=== PATIENT | female | born 1975 | race Caucasian/White ===

== ENCOUNTER 2018-11-06 20:14 | Emergency (ER) | payer BC ==
[2018-11-06] MEDS: Sulfamethoxazole/Trimethoprim 800-160 MG Tab PO ONE (21:02)
--- NOTE | 2018-11-06 21:03 | EDM.PDOC ---
ED HPI GENERAL MEDICAL PROBLEM - General Chief Complaint: Genitourinary Problem Stated Complaint: Pain and burning with urination, back pain Time Seen by Provider: 11/06/18 20:40 Source of Information: Reports: Patient History Limitations: Reports: No Limitations - History of Present Illness INITIAL COMMENTS - FREE TEXT/NARRATIVE: Pt with increased urinary frequency, dysuria and back pain Began today Worse tonight low back Pain Score (Numeric/FACES): 7 pain with urination Pain Score (Numeric/FACES): 10 - Related Data Allergies Allergy/AdvReac Type Severity Reaction Status Date / Time No Known Allergies Allergy Verified 11/06/18 20:34 Home Meds: Home Meds DULoxetine [Cymbalta] 60 mg PO DAILY 11/06/18 [History] Valsartan 160 mg PO DAILY 11/06/18 [History] Past Medical History Cardiovascular History: Reports: Hypertension Psychiatric History: Reports: Depression ED ROS GENERAL - Review of Systems Review Of Systems: See Below GI/Abdominal: Reports: Abdominal Pain : Reports: Dysuria, Flank Pain, Frequency ED EXAM, GI/ABD - Physical Exam Exam: See Below GI/Abdominal Exam: Soft, Tender Course - Vital Signs Last Recorded V/S: Last Vital Signs Temp 36.9 C 11/06/18 20:15 Pulse 91 11/06/18 20:15 Resp 16 11/06/18 20:15 BP 126/95 H 11/06/18 20:15 Pulse Ox - Orders/Labs/Meds Orders: Active Orders 24 hr Category Date Time Status CULTURE URINE [RM] Stat Lab 11/06/18 20:58 Ordered MICRO URINE FOR POC DIPSTICK [POC] Stat Lab 11/06/18 20:56 Ordered Meds: Medications Discontinued Medications Generic Name Dose Route Start Last Admin Trade Name Freq PRN Reason Stop Dose Admin Trimethoprim/Sulfamethoxazole 1 tab 11/06/18 20:59 Septra Ds PO 11/06/18 21:00 ONETIME ONE - Re-Assessments/Exams Free Text/Narrative Re-Assessment/Exam: 11/06/18 21:02 Pt given RX Bactrim DS PO BID Departure - Departure Time of Disposition: 21:15 Disposition: Home, Self-Care 01 Clinical Impression: UTI, Urinary tract infectious disease - Discharge Information *PRESCRIPTION DRUG MONITORING PROGRAM REVIEWED*: Not Applicable *COPY OF PRESCRIPTION DRUG MONITORING REPORT IN PATIENT AZALEA: Not Applicable Instructions: Urinary Tract Infection, Adult Referrals: Elva Salmon NP [Primary Care Provider] - Additional Instructions: Follow up in clinic - My Orders Last 24 Hours: My Active Orders 11/06/18 20:56 MICRO URINE FOR POC DIPSTICK [POC] Stat 11/06/18 20:58 CULTURE URINE [RM] Stat - Assessment/Plan Last 24 Hours: My Active Orders 11/06/18 20:56 MICRO URINE FOR POC DIPSTICK [POC] Stat 11/06/18 20:58 CULTURE URINE [RM] Stat
== END 2018-11-06 21:10 | disposition home or self-care (01) ==
LOC: VM.ED 20:14
DX: N39.0 Urinary tract infection, site not specified (principal); F32.9 Major depressive disorder, single episode, unspecified; I10 Essential (primary) hypertension; Z79.899 Other long term (current) drug therapy
CPT/HCPCS: 81002; 87086; 99283; A9270; 87088; 87186

== ENCOUNTER 2019-08-27 12:37 | Emergency (ER) | payer BC ==
--- NOTE | 2019-08-27 13:08 | EDM.PDOC ---
ED HPI GENERAL MEDICAL PROBLEM - General Chief Complaint: [employer]ING [employer] Problem Stated Complaint: CRAMPING AND HEAVY BLEEDING Time Seen by Provider: 08/27/19 12:45 Source of Information: Reports: Patient History Limitations: Reports: No Limitations - History of Present Illness INITIAL COMMENTS - FREE TEXT/NARRATIVE: Patient presents to ER with complaints of abdominal cramping and vaginal bleeding. Had a menstrual cycle from the 13th to the 17th, a normal menses although admits her cycles have been heavier over the last year. STarted bleeding again during the night. Has changed her tampon 4 times since. Has passed large clots. Does note increased suprapubic cramping. Had a low grade fever yesterday. Had intercourse a week ago, was more uncomfortable than normal. History of tubal ligation. Had 4 live births. Does express concern about blood loss as she has history of anemia. Onset: Today Duration: Hour(s):, Waxing/Waning Location: Reports: Abdomen Quality: Reports: Sharp Severity: Moderate Associated Symptoms: Reports: Fever/Chills, Weakness. Denies: Chest Pain, Cough , Loss of Appetite, Nausea/Vomiting, Shortness of Breath, Syncope Left Lower Abdomen Pain Score (Numeric/FACES): 9 - Related Data Allergies Allergy/AdvReac Type Severity Reaction Status Date / Time No Known Allergies Allergy Verified 08/27/19 12:54 Home Meds: Home Meds DULoxetine [Cymbalta] 60 mg PO DAILY 11/06/18 [History] Valsartan 160 mg PO DAILY 11/06/18 [History] Past Medical History Cardiovascular History: Reports: Hypertension Psychiatric History: Reports: Depression Hematologic History: Reports: Anemia Social & Family History - Tobacco Use Smoking Status *Q: Unknown Ever Smoked ED ROS GENERAL - Review of Systems Review Of Systems: See Below Constitutional: Reports: Fever, Chills, Malaise, Weakness, Fatigue. Denies: Decreased Appetite HEENT: Reports: No Symptoms Respiratory: Denies: Shortness of Breath, Cough Cardiovascular: Denies: Chest Pain, Edema, Lightheadedness Endocrine: Reports: Fatigue GI/Abdominal: Reports: Abdominal Pain. Denies: Nausea, Vomiting : Reports: Irregular Menses Musculoskeletal: Reports: No Symptoms Skin: Reports: No Symptoms Neurological: Reports: No Symptoms ED EXAM, RENAL/ - Physical Exam Exam: See Below Exam Limited By: No Limitations General Appearance: Alert, WD/WN, No Apparent Distress Ears: Normal External Exam, Normal TMs Nose: Normal Inspection, Normal Mucosa, No Blood Throat/Mouth: Normal Inspection, Normal Oropharynx Head: Normocephalic Neck: Normal Inspection, Supple, Non-Tender Respiratory/Chest: No Respiratory Distress, Lungs Clear, Normal Breath Sounds Cardiovascular: Regular Rate, Rhythm GI/Abdominal: Normal Bowel Sounds, Soft, Tender Extremities: Normal Inspection, No Pedal Edema Neurological: Alert, Oriented Skin Exam: Warm, Dry Course - Vital Signs Last Recorded V/S: Last Vital Signs Temp 97.3 F 08/27/19 12:42 Pulse 90 08/27/19 12:42 Resp 16 08/27/19 12:42 BP 144/95 H 08/27/19 12:42 Pulse Ox 100 08/27/19 12:42 - Orders/Labs/Meds Labs: Laboratory Tests 08/27/19 08/27/19 08/27/19 Range/Units 13:04 13:08 13:08 WBC 6.0 (4.0-10.0) x10^3/uL RBC 4.37 (4.00-5.50) x10^6/uL Hgb 12.7 (12.0-16.0) g/dL Hct 39.0 (33.0-47.0) % MCV 89.2 (78.0-93.0) fL MCH 29.1 (26.0-32.0) pg MCHC 32.6 (32.0-36.0) g/dL RDW Coeff of Vidya 18.6 H (10.0-15.0) % Plt Count 184 (130-400) x10^3/uL Neut % (Auto) 74.1 (50.0-80.0) % Lymph % (Auto) 18.1 L (25.0-50.0) % [place] % (Auto) 5.2 (2.0-11.0) % Eos % (Auto) 2.3 (0.0-4.0) % Baso % (Auto) 0.3 (0.2-1.2) % Sodium 143 (136-145) mmol/L Potassium 3.4 L (3.5-5.1) mmol/L Chloride 106 (98-107) mmol/L Carbon Dioxide 28 (21-32) mmol/L Anion Gap 12.4 (10-20) mmol/L BUN 7 (7-18) mg/dL Creatinine 0.7 (0.55-1.02) mg/dL Est Cr Clr Drug Dosing TNP Estimated GFR (MDRD) > 60 Glucose 137 H (74-106) mg/dL Calcium 7.9 L (8.5-10.1) mg/dL Urine HCG, Qual Negative (NEGATIVE) Meds: Medications Discontinued Medications Generic Name Dose Route Start Last Admin Trade Name Freq PRN Reason Stop Dose Admin Hydrocodone Bitart/Acetaminophen 1 tab 08/27/19 13:21 08/27/19 13:44 [place] 325-5 Mg PO 08/27/19 13:22 1 tab ONETIME ONE Administration - Re-Assessments/Exams Free Text/Narrative Re-Assessment/Exam: 08/27/19 13:35 Labs are stable. Contacted [facility] to obtain a pelvic ultrasound, set up for 245 pm today. Patient informed. will take her directly there, radiologist will call with report and further direction will be given at that point. 1530-Received call from radiologist. Has small ovarian cyst, no other uterine concerns. Patient notified by phone. Will start medroxyprogesterone 5 mg daily. Given 10# [place] for pain. Encouraged to follow up with primary care provider. Departure - Departure Time of Disposition: 13:36 Disposition: Home, Self-Care 01 Condition: Undetermined Clinical Impression: Vaginal bleeding - Discharge Information *PRESCRIPTION DRUG MONITORING PROGRAM REVIEWED*: No *COPY OF PRESCRIPTION DRUG MONITORING REPORT IN PATIENT AZALEA: No Instructions: Abnormal Uterine Bleeding Referrals: Farrukh Núñez MD [Primary Care Provider] - Forms: ED Department Discharge Additional Instructions: 1. Push fluids 2. Do not void before ultrasound 3. Present to [facility]ology department at the hospital by 230 pm 4. Radiologist will notify provider here in [place] of results and treatment will be determined at that time. Sepsis Event Note - Evaluation Sepsis Screening Result: No Definite Risk - Focused Exam Vital Signs: Vital Signs Temp Pulse Resp BP Pulse Ox 08/27/19 12:42 97.3 F 90 16 144/95 H 100 Date Exam was Performed: 08/27/19 Time Exam was Performed: 22:08
[2019-08-27] MEDS ORDERED: Acetaminophen/HYDROcodone 325-5 MG Tab PO ONE (13:21)
[2019-08-27 13:27] LABS: CHLORIDE,CL 106 mmol/L (98-107); SODIUM,NA 143 mmol/L (136-145)
[2019-08-27 13:28] LABS: ANION GAP 12.4 mmol/L (10-20)
== END 2019-08-27 13:47 | disposition home or self-care (01) ==
LOC: VM.ED 12:37
DX: N93.9 Abnormal uterine and vaginal bleeding, unspecified (principal); I10 Essential (primary) hypertension; Z79.899 Other long term (current) drug therapy
CPT/HCPCS: 36415; 80048; 81025; 85025; 99284; A9270

== ENCOUNTER 2020-01-11 17:41 | Emergency (ER) | payer BC ==
[2020-01-11] MEDS ORDERED: Ketorolac 60 MG/2 ML SDV IM ONE (18:31)
[2020-01-11] MEDS ORDERED: Sodium Chloride 0.9% 10 ML Syringe FLUSH PRN (18:34)
--- NOTE | 2020-01-11 18:41 | EDM.PDOC ---
ED HPI GENERAL MEDICAL PROBLEM - General Stated Complaint: FELL DOWN STEPS Time Seen by Provider: 01/11/20 18:15 Source of Information: Reports: Patient - History of Present Illness INITIAL COMMENTS - FREE TEXT/NARRATIVE: Marguerite is a 44 y/o female who fell down about 6 steps this AM with a basket of clothes that she was carrying. She has gotten more uncomfortable as the day has done on. She noticed a large hard bruised area on her left buttock that is very painful to sit on. She has not taken any meds, but can hardly lay down due to the pain. Left Lower Hip Pain Score (Numeric/FACES): 9 - Related Data Allergies Allergy/AdvReac Type Severity Reaction Status Date / Time No Known Allergies Allergy Verified 01/11/20 19:54 Home Meds: Home Meds DULoxetine [Cymbalta] 60 mg PO DAILY 11/06/18 [History] Valsartan 160 mg PO DAILY 11/06/18 [History] Ondansetron [Ondansetron ODT] 4 mg PO Q6H PRN #15 tab.rapdis 01/11/20 [Rx] oxyCODONE HCl/Acetaminophen [Oxycodone-Acetaminophen 5-325] 1 - 2 each PO Q4HR 3 Days #30 tablet 01/11/20 [Rx] Past Medical History Cardiovascular History: Reports: Hypertension Psychiatric History: Reports: Depression Hematologic History: Reports: Anemia Review of Systems - Review of Systems Review Of Systems: See Below Constitutional: Reports: No Symptoms Eyes: Reports: No Symptoms Ears: Reports: No Symptoms Nose: Reports: No Symptoms Mouth/Throat: Reports: No Symptoms Respiratory: Reports: No Symptoms Cardiovascular: Reports: No Symptoms GI/Abdominal: Reports: No Symptoms Genitourinary: Reports: No Symptoms Musculoskeletal: Reports: Back Pain, Other (left buttcok pain) Skin: Reports: Bruising (left buttock) Neurological: Reports: No Symptoms Psychiatric: Reports: No Symptoms ED EXAM, GENERAL - Physical Exam Exam: See Below Course - Vital Signs Text/Narrative:: The patient was seen by the [facility]. CTs of Abd/Pelvis to evaluate the XL hematoma on her left buttcok and CT of Thoracic and Lumbar spine to look at her spine since she has had 3 fusions to her lower back region. Labs done. She was given Toradol 30 mg IVP. 2034 CTs results reviewed with patient. Toradol helped with her pain, ice on left buttock region helps alot. Questions answered. She was given discharge instructions and left the ER in stable condition. Last Recorded V/S: Last Vital Signs Temp 36.1 C 01/11/20 17:48 Pulse 117 H 01/11/20 17:48 Resp 18 01/11/20 17:48 BP 148/91 H 01/11/20 17:48 Pulse Ox 98 01/11/20 17:48 - Orders/Labs/Meds Orders: Active Orders 24 hr Category Date Time Status Abdomen Pelvis w Cont [CT] Stat Exams 01/11/20 18:33 Ordered Lumbar Spine wo Cont [CT] Routine Exams 01/11/20 18:56 Ordered Thoracic Spine wo Cont [CT] Routine Exams 01/11/20 18:53 Taken Sodium Chloride 0.9% [Saline Flush] Med 01/11/20 18:34 Active 10 ml FLUSH ASDIRECTED PRN Saline Lock Insert [OM.PC] Stat Oth 01/11/20 18:35 Ordered Medication Orders Sodium Chloride (Saline Flush) 10 ml FLUSH ASDIRECTED PRN PRN Reason: Keep Vein Open Last Admin: 01/11/20 18:58 Dose: 10 ml Documented by: PHILIPPE Labs: Laboratory Tests 01/11/20 01/11/20 Range/Units 19:06 19:06 WBC 9.2 (4.0-10.0) x10^3/uL RBC 3.73 L (4.00-5.50) x10^6/uL Hgb 12.5 (12.0-16.0) g/dL Hct 36.1 (33.0-47.0) % MCV 96.8 H D (78.0-93.0) fL MCH 33.5 H (26.0-32.0) pg MCHC 34.6 (32.0-36.0) g/dL RDW Coeff of Vidya 12.4 (10.0-15.0) % Plt Count 190 (130-400) x10^3/uL Neut % (Auto) 82.5 H (50.0-80.0) % Lymph % (Auto) 10.6 L (25.0-50.0) % [place] % (Auto) 6.3 (2.0-11.0) % Eos % (Auto) 0.5 (0.0-4.0) % Baso % (Auto) 0.1 L (0.2-1.2) % Sodium 133 L D (136-145) mmol/L Potassium 4.2 (3.5-5.1) mmol/L Chloride 99 (98-107) mmol/L Carbon Dioxide 26 (21-32) mmol/L Anion Gap 12.2 (10-20) mmol/L BUN 13 (7-18) mg/dL Creatinine 0.7 (0.55-1.02) mg/dL Est Cr Clr Drug Dosing 111.31 mL/min Estimated GFR (MDRD) > 60 Glucose 114 H (74-106) mg/dL Calcium 7.7 L (8.5-10.1) mg/dL Meds: Medications Generic Name Dose Route Start Last Admin Trade Name Freq PRN Reason Stop Dose Admin Sodium Chloride 10 ml 01/11/20 18:34 01/11/20 18:58 Saline Flush FLUSH 10 ml ASDIRECTED PRN Administration Keep Vein Open Discontinued Medications Generic Name Dose Route Start Last Admin Trade Name Freq PRN Reason Stop Dose Admin Iopamidol 100 ml 01/11/20 19:41 01/11/20 19:41 Isovue-300 (61%) IVPUSH 01/11/20 19:42 100 ml ONETIME ONE Administration Ketorolac Tromethamine 60 mg 01/11/20 18:31 01/11/20 18:51 Toradol IM 01/11/20 18:32 30 mg ONETIME ONE Administration Ketorolac Tromethamine 30 mg 01/11/20 19:47 Toradol IVPUSH 01/11/20 19:48 ONETIME ONE Oxycodone/Acetaminophen 1 packet 01/11/20 19:50 Take Home: Acetamin/Oxycodon 325-5 Mg, 5 Pack PO 01/11/20 19:51 ONETIME ONE - Radiology Interpretation Free Text/Narrative:: CT Abd/Pelvis W=15.8cm x 7.5cm hematoma in the left buttock region, no other findings (See final report) CT Thoracic Spine=neg (See final report) CT Lumbar Spine=neg (See final report) Departure - Departure Time of Disposition: 20:37 Disposition: Home, Self-Care 01 Clinical Impression: Fall (on) (from) other stairs and steps, initial encounter, Contusion of hip Hematoma of left hip Qualifiers: Encounter type: initial encounter Qualified Code(s): S70.02XA - Contusion of left hip, initial encounter - Discharge Information *PRESCRIPTION DRUG MONITORING PROGRAM REVIEWED*: No *COPY OF PRESCRIPTION DRUG MONITORING REPORT IN PATIENT AZALEA: No Prescriptions: Ondansetron [Ondansetron ODT] 4 mg PO Q6H PRN #15 tab.rapdis PRN Reason: Nausea oxyCODONE HCl/Acetaminophen [Oxycodone-Acetaminophen 5-325] 1 - 2 each PO Q4HR 3 Days #30 tablet Instructions: Contusion, [id number], Pain Medicine Instructions, [id number], How to Use Cold Therapy, Contusion Referrals: Elva Salmon NP [Primary Care Provider] - Additional Instructions: -Oxycodone/APAP 5/325mg 1-2 tablets oral every 4 hours as needed for severe pain #5(ER) #30(Rx) -Ondansetron ODT 4mg oral every 4 hours as needed for nausea #15(Rx) -You may also use ibuprofen 200mg 3 tablets oral every 6 hours (Use over the counter meds) -Apply ice/cool compresses to the left buttock region. -Activity as tolerates. -Follow up with your PCP for recheck in 7-10 days, sooner if any other issues. Please see your PCP for further pain med refills. -Return to the ER for any other concerns Sepsis Event Note (ED) - Focused Exam Vital Signs: Vital Signs Temp Pulse Resp BP Pulse Ox 01/11/20 17:48 36.1 C 117 H 18 148/91 H 98 - My Orders Last 24 Hours: My Active Orders 01/11/20 18:33 Abdomen Pelvis w Cont [CT] Stat 01/11/20 18:34 Sodium Chloride 0.9% [Saline Flush] 10 ml FLUSH ASDIRECTED PRN 01/11/20 18:35 Saline Lock Insert [OM.PC] Stat 01/11/20 18:53 Thoracic Spine wo Cont [CT] Routine 01/11/20 18:56 Lumbar Spine wo Cont [CT] Routine - Assessment/Plan Last 24 Hours: My Active Orders 01/11/20 18:33 Abdomen Pelvis w Cont [CT] Stat 01/11/20 18:34 Sodium Chloride 0.9% [Saline Flush] 10 ml FLUSH ASDIRECTED PRN 01/11/20 18:35 Saline Lock Insert [OM.PC] Stat 01/11/20 18:53 Thoracic Spine wo Cont [CT] Routine 01/11/20 18:56 Lumbar Spine wo Cont [CT] Routine
[2020-01-11 19:27] LABS: ANION GAP 12.2 mmol/L (10-20); CHLORIDE,CL 99 mmol/L (98-107); SODIUM,NA 133 mmol/L (136-145)
[2020-01-11] MEDS ORDERED: Iopamidol 612 MG/ML 100 ML Bottle IVPUSH ONE (19:41)
[2020-01-11] MEDS ORDERED: Ketorolac 30 MG/ML SDV IVPUSH ONE (19:47)
[2020-01-11] MEDS ORDERED: Take Home: Acetaminophen/oxyCODONE 325-5 MG, 5 Tab Pack PO ONE (19:50)
--- NOTE | 2020-01-12 09:46 | CT ---
[id number] CT/CT Abdomen Pelvis W IV EXAM: CT Abdomen Pelvis W IV CLINICAL DATA: LARGE HEMATOMA ON LEFT BUTTOCK, FALL DOWN STEPS COMPARISON STUDY: None. FINDINGS: Lung bases are clear. Postsurgical changes following gastric bypass. The gallbladder surgically absent. Mild intra and extrahepatic biliary ductal dilatation likely secondary to prior cholecystectomy. The spleen, pancreas, Liver, spleen, pancreas, adrenal glands, and kidneys are unremarkable. No bowel obstruction or inflammation. No lymphadenopathy, free fluid, or pneumoperitoneum. Scattered changes of spondylosis the spine. No fracture or osseous lesion. Postsurgical changes following posterior spinal fusion of the lobe and lower lumbar spine. There is a large 15.8 x 7.5 cm hematoma within the superficial soft tissues of the left buttock. No definite evidence of active extravasation though the timing of the study is not arterial. IMPRESSION: 15.8 x 7.5 cm hematoma within the superficial soft tissues of the left buttock. Dmitriy Valencia DO 01/12/20 0943 Thank you for allowing us to participate in the care of your patient.
--- NOTE | 2020-01-12 09:46 | CT ---
[id number] CT/CT Lumbar Spine WO IV Exam: CT Lumbar Spine WO IV Clinical Data: TRAUMA COMPARISON: NO PREVIOUS SIMILAR EXAM IS AVAILABLE FINDINGS: There is no fracture or subluxation. There are surgical changes There are degenerative changes IMPRESSION: NO FRACTURE OR SUBLUXATION Daquan Plata MD 01/12/20 0950 Thank you for allowing us to participate in the care of your patient.
--- NOTE | 2020-01-12 09:47 | CT ---
[id number] CT/CT Thoracic Spine WO IV Exam: CT Thoracic Spine WO IV Clinical Data: TRAUMA COMPARISON: NO PREVIOUS SIMILAR EXAM IS AVAILABLE FINDINGS: There are degenerative changes There is no fracture or subluxation IMPRESSION: NO FRACTURE OR SUBLUXATION Daquan Plata MD 01/12/20 0943 Thank you for allowing us to participate in the care of your patient.
== END 2020-01-11 20:53 | disposition home or self-care (01) ==
LOC: VM.ED 17:41
DX: S70.02XA Contusion of left hip, initial encounter (principal); S30.0XXA Contusion of lower back and pelvis, initial encounter; I10 Essential (primary) hypertension; F32.9 Major depressive disorder, single episode, unspecified; Z79.899 Other long term (current) drug therapy; W10.8XXA Fall (on) (from) other stairs and steps, initial encounter
CPT/HCPCS: 36415; 72128; 72131; 74177; 80048; 85025; 96374; 99284; A9270; J1885; Q9967

== ENCOUNTER 2020-07-23 15:53 | Emergency (ER) | payer BC ==
[2020-07-23] MEDS ORDERED: Sodium Chloride 0.9% 10 ML Syringe FLUSH PRN (16:11)
[2020-07-23] MEDS ORDERED: Ketorolac 15 MG/ML SDV IVPUSH ONE (16:15)
[2020-07-23] MEDS ORDERED: methylPREDNISolone Sodium Succinate 125 MG/2 ML SDV IV ONE (16:15)
[2020-07-23] MEDS ORDERED: Aspirin 81 MG Tab.Chew PO ONE (16:21)
--- NOTE | 2020-07-23 16:44 | CR ---
[id number] RAD/RAD Chest PA or AP 1V EXAM: RAD Chest PA or AP 1V INDICATION: CHEST PAIN. COMPARISON: None. DISCUSSION: Cardiomediastinal silhouette is normal in size and contour. No infiltrate, effusion, pneumothorax, or edema. IMPRESSION: No acute cardiopulmonary abnormality. Dmitriy Valencia DO 07/23/20 1643 Thank you for allowing us to participate in the care of your patient.
[2020-07-23 16:45] LABS: ANION GAP 11.4 mmol/L (5-15); CHLORIDE,CL 100 mmol/L (98-107); SODIUM,NA 138 mmol/L (136-145)
--- NOTE | 2020-07-23 17:01 | EDM.PDOC ---
ED HPI GENERAL MEDICAL PROBLEM - General Chief Complaint: Chest Pain Time Seen by Provider: 07/23/20 16:00 Source of Information: Reports: Patient History Limitations: Reports: No Limitations - History of Present Illness INITIAL COMMENTS - FREE TEXT/NARRATIVE: Pt. presents to ER with complaints of substernal chest pain with radiation into L shoulder. Pt. states that the symptoms have been present for several days. Denies any trauma. No cough or chest congestion. No fever or chills. Pt. states that the discomfort intensified gradually. It is constant and does not come and go. It is not respirophasic or made with with movement. She states that she is not experiencing any palpitations. She denies any lightheadedness. She states that she has been diaphoretic, but states that this is normal for her. Onset Date: 07/21/20 Location: Reports: Chest, Generalized Mid-Sternal Chest Pain Score (Numeric/FACES): 7 - Related Data Allergies Allergy/AdvReac Type Severity Reaction Status Date / Time No Known Allergies Allergy Verified 01/11/20 19:54 Home Meds: Home Meds DULoxetine [Cymbalta] 60 mg PO DAILY 11/06/18 [History] Cholecalciferol (Vitamin D3) [Vitamin D3] 2,000 unit PO DAILY 07/23/20 [History] Pramipexole Di-HCl [Mirapex] 0.125 mg PO BEDTIME 07/23/20 [History] Valsartan/Hydrochlorothiazide [Diovan Hct 320-25 mg Tablet] 1 each PO DAILY 07/23/20 [History] buPROPion HCL [Wellbutrin Xl] 150 mg PO DAILY 07/23/20 [History] buPROPion HCL [Wellbutrin Xl] 300 mg PO DAILY 07/23/20 [History] busPIRone [Buspar] 15 mg PO BID 07/23/20 [History] carvediloL [Coreg] 3.125 mg PO BID 07/23/20 [History] hydrOXYzine HCL [Atarax] 25 mg PO Q4H PRN 07/23/20 [History] Past Medical History Cardiovascular History: Reports: Hypertension Musculoskeletal History: Reports: Back Pain, Chronic Psychiatric History: Reports: Depression Hematologic History: Reports: Anemia - Past Surgical History Musculoskeletal Surgical History: Reports: Other (See Below) Other Musculoskeletal Surgeries/Procedures:: back surgery Social & Family History - Family History Family Medical History: No Pertinent Family History - Tobacco Use Tobacco Use Status *Q: Current Every Day Tobacco User Years of Tobacco use: 30 Packs/Tins Daily: 0.3 - Caffeine Use Caffeine Use: Reports: None ED ROS GENERAL - Review of Systems Review Of Systems: See Below Constitutional: Reports: No Symptoms HEENT: Reports: No Symptoms Respiratory: Reports: No Symptoms. Denies: Shortness of Breath, Wheezing, Pleuritic Chest Pain, Cough, Sputum, Hemoptysis Cardiovascular: Reports: Chest Pain, Edema (States that she has been more "puffy" lately. Having trouble getting her rings off.). Denies: Dyspnea on Exertion Endocrine: Reports: No Symptoms GI/Abdominal: Reports: No Symptoms : Reports: No Symptoms Musculoskeletal: Reports: No Symptoms Skin: Reports: No Symptoms Neurological: Reports: No Symptoms Psychiatric: Reports: No Symptoms Hematologic/Lymphatic: Reports: No Symptoms Immunologic: Reports: No Symptoms ED EXAM, GENERAL - Physical Exam Exam: See Below Exam Limited By: No Limitations General Appearance: Alert, WD/WN, No Apparent Distress Head: Atraumatic, Normocephalic Neck: Normal Inspection, Supple, Non-Tender, Full Range of Motion Respiratory/Chest: No Respiratory Distress, No Accessory Muscle Use, Chest Non-Tender, Pleural Rub Cardiovascular: Normal Peripheral Pulses, Regular Rate, Rhythm, No JVD, No Murmur, No Rub GI/Abdominal: Soft, Non-Tender, No Distention, No Mass (Female) Exam: Deferred Rectal (Female) Exam: Deferred Extremities: Normal Inspection, Normal Range of Motion, Non-Tender, No Pedal Edema, Normal Capillary Refill Neurological: Alert, Oriented, CN II-XII Intact, No Motor/Sensory Deficits Psychiatric: Normal Affect, Normal Mood Skin Exam: Warm, Dry, Intact, Normal Color Course - Vital Signs Last Recorded V/S: Last Vital Signs Temp 36.8 C 07/23/20 15:55 Pulse 81 07/23/20 15:55 Resp 16 07/23/20 15:55 BP 184/117 H 07/23/20 15:55 Pulse Ox 97 07/23/20 15:55 - Orders/Labs/Meds Orders: Active Orders 24 hr Category Date Time Status EKG Documentation Completion [RC] STAT Care 07/23/20 16:12 Active Sodium Chloride 0.9% [Saline Flush] Med 07/23/20 16:11 Active 10 ml FLUSH ASDIRECTED PRN Peripheral IV Insertion Adult [OM.PC] Routine Oth 07/23/20 16:12 Ordered Medication Orders Sodium Chloride (Saline Flush) 10 ml FLUSH ASDIRECTED PRN PRN Reason: Keep Vein Open Last Admin: 07/23/20 16:30 Dose: 10 ml Documented by: [facility] Labs: Laboratory Tests 07/23/20 07/23/20 07/23/20 Range/Units 16:10 16:10 16:10 WBC 4.3 (4.0-10.0) x10^3/uL RBC 4.07 (4.00-5.50) x10^6/uL Hgb 13.2 (12.0-16.0) g/dL Hct 39.1 (33.0-47.0) % MCV 96.1 H (78.0-93.0) fL MCH 32.4 H (26.0-32.0) pg MCHC 33.8 (32.0-36.0) g/dL RDW Coeff of Vidya 12.9 (10.0-15.0) % Plt Count 151 (130-400) x10^3/uL Neut % (Auto) 54.1 (50.0-80.0) % Lymph % (Auto) 31.5 (25.0-50.0) % [place] % (Auto) 9.5 (2.0-11.0) % Eos % (Auto) 4.4 H (0.0-4.0) % Baso % (Auto) 0.5 (0.2-1.2) % PT 10.5 (9.9-12.5) SEC INR 0.9 L (2.0-3.5) D-Dimer, Quantitative (<=0.58) mg/LFEU Sodium 138 (136-145) mmol/L Potassium 3.4 L (3.5-5.1) mmol/L Chloride 100 (98-107) mmol/L Carbon Dioxide 30 (21-32) mmol/L Anion Gap 11.4 (5-15) mmol/L BUN 9 (7-18) mg/dL Creatinine 0.8 (0.55-1.02) mg/dL Est Cr Clr Drug Dosing TNP Estimated GFR (MDRD) > 60 Glucose 97 (74-106) mg/dL Calcium 8.1 L (8.5-10.1) mg/dL Corrected Calcium 8.50 (8.5-10.1) mg/dL Total Bilirubin 0.5 (0.2-1.0) mg/dL AST 90 H (15-37) U/L ALT 119 H (14-59) U/L Alkaline Phosphatase 168 H (46-116) U/L Troponin I < 0.017 (<=0.056) ng/mL C-Reactive Protein < 0.2 (<=0.9) mg/dL NT-Pro-B Natriuret Pep 198 H (<=125) pg/mL Total Protein 6.9 (6.4-8.2) g/dL Albumin 3.5 (3.4-5.0) g/dL Globulin 3.4 Albumin/Globulin Ratio 1.03 TSH, Ultra Sensitive 2.149 (0.358-3.74) uIU/mL 07/23/20 Range/Units 16:10 WBC (4.0-10.0) x10^3/uL RBC (4.00-5.50) x10^6/uL Hgb (12.0-16.0) g/dL Hct (33.0-47.0) % MCV (78.0-93.0) fL MCH (26.0-32.0) pg MCHC (32.0-36.0) g/dL RDW Coeff of Vidya (10.0-15.0) % Plt Count (130-400) x10^3/uL Neut % (Auto) (50.0-80.0) % Lymph % (Auto) (25.0-50.0) % [place] % (Auto) (2.0-11.0) % Eos % (Auto) (0.0-4.0) % Baso % (Auto) (0.2-1.2) % PT (9.9-12.5) SEC INR (2.0-3.5) D-Dimer, Quantitative 0.31 (<=0.58) mg/LFEU Sodium (136-145) mmol/L Potassium (3.5-5.1) mmol/L Chloride (98-107) mmol/L Carbon Dioxide (21-32) mmol/L Anion Gap (5-15) mmol/L BUN (7-18) mg/dL Creatinine (0.55-1.02) mg/dL Est Cr Clr Drug Dosing Estimated GFR (MDRD) Glucose (74-106) mg/dL Calcium (8.5-10.1) mg/dL Corrected Calcium (8.5-10.1) mg/dL Total Bilirubin (0.2-1.0) mg/dL AST (15-37) U/L ALT (14-59) U/L Alkaline Phosphatase (46-116) U/L Troponin I (<=0.056) ng/mL C-Reactive Protein (<=0.9) mg/dL NT-Pro-B Natriuret Pep (<=125) pg/mL Total Protein (6.4-8.2) g/dL Albumin (3.4-5.0) g/dL Globulin Albumin/Globulin Ratio TSH, Ultra Sensitive (0.358-3.74) uIU/mL Meds: Medications Generic Name Dose Route Start Last Admin Trade Name Freq PRN Reason Stop Dose Admin Sodium Chloride 10 ml 07/23/20 16:11 07/23/20 16:30 Saline Flush FLUSH 10 ml ASDIRECTED PRN Administration Keep Vein Open Discontinued Medications Generic Name Dose Route Start Last Admin Trade Name Freq PRN Reason Stop Dose Admin Aspirin 324 mg 07/23/20 16:21 07/23/20 16:30 Aspirin PO 07/23/20 16:22 324 mg ONETIME ONE Administration Ketorolac Tromethamine 15 mg 07/23/20 16:15 07/23/20 16:30 Toradol IVPUSH 07/23/20 16:16 15 mg ONETIME ONE Administration Methylprednisolone Sodium Succinate 125 mg 07/23/20 16:15 07/23/20 16:30 Solu-Medrol IV 07/23/20 16:16 125 mg ONETIME ONE Administration - Radiology Interpretation Free Text/Narrative:: Chest x-ray was negative - Re-Assessments/Exams Free Text/Narrative Re-Assessment/Exam: 07/23/20 17:04 Pain resolved with IV solu medrol and toradol. Departure - Departure Time of Disposition: 17:02 Disposition: Home, Self-Care 01 Clinical Impression: Atypical chest pain - Discharge Information Instructions: Nonspecific Chest Pain, Adult, [id number], Pleurisy, [id number] Referrals: Elva Salmon NP [Primary Care Provider] - Forms: ED Department Discharge Additional Instructions: Prednisone 20mg 2 tabs daily for 6 days Ibuprofen 200mg 3 tabs every 6 hours Recheck in clinic in 7-10 days Return to ER if worsening discomfort, shortness of breath, or other worrisome signs and symptoms. Sepsis Event Note (ED) - Evaluation Sepsis Screening Result: No Definite Risk - Focused Exam Vital Signs: Vital Signs Temp Pulse Resp BP Pulse Ox 07/23/20 15:55 36.8 C 81 16 184/117 H 97 - My Orders Last 24 Hours: My Active Orders 07/23/20 16:11 Sodium Chloride 0.9% [Saline Flush] 10 ml FLUSH ASDIRECTED PRN 07/23/20 16:12 EKG Documentation Completion [RC] STAT Peripheral IV Insertion Adult [OM.PC] Routine - Assessment/Plan Last 24 Hours: My Active Orders 07/23/20 16:11 Sodium Chloride 0.9% [Saline Flush] 10 ml FLUSH ASDIRECTED PRN 07/23/20 16:12 EKG Documentation Completion [RC] STAT Peripheral IV Insertion Adult [OM.PC] Routine Plan: Prednisone 20mg 2 tabs daily for 6 days Ibuprofen 200mg 3 tabs every 6 hours Recheck in clinic in 7-10 days Return to ER if worsening discomfort, shortness of breath, or other worrisome signs and symptoms.
== END 2020-07-23 17:10 | disposition home or self-care (01) ==
LOC: VM.ED 15:53
DX: R07.89 Other chest pain (principal); R07.2 Precordial pain; I10 Essential (primary) hypertension; Z72.0 Tobacco use; Z79.899 Other long term (current) drug therapy
CPT/HCPCS: 71045; 80053; 83880; 84443; 84484; 85025; 85379; 85610; 86140; 93005; 96374; 96375; 99284; 99285-25; A9270-GY; J1885; J2930

== ENCOUNTER 2020-08-15 03:15 | Emergency (ER) | payer BC ==
[2020-08-15 04:25] LABS: ANION GAP 12.2 mmol/L (5-15); CHLORIDE,CL 96 mmol/L (98-107); SODIUM,NA 133 mmol/L (136-145)
--- NOTE | 2020-08-15 04:25 | EDM.PDOC ---
ED HPI GENERAL MEDICAL PROBLEM - General Stated Complaint: Intoxicated, head injury Time Seen by Provider: 08/15/20 03:15 Source of Information: Reports: Patient History Limitations: Reports: No Limitations - History of Present Illness INITIAL COMMENTS - FREE TEXT/NARRATIVE: Patient comes emergency department today by ambulance from the local bar following a night out on the town and drinking when she fell and struck her head. This patient relates that she is an alcoholic who drinks on a regular basis. She was at the bar tonight drinking most of the evening and had weight more than 12 mixed drinks tonight. For the past hour they have been giving her water and she was cut off by the patent drafter. When they are attempting to get up and leave to go get in the cab to get a ride home with her she was trying to ambulate and he was trying to assist her, she was unwilling for his assistance and continued to walk. She then walked right into a close door striking it with her forehead falling backwards not catching her self and striking the posterior aspect of her head. The watch the entire thing. She had about loss of consciousness. She was ambulatory on the scene. Ambulance was summoned. Upon arrival she presents to the emergency department by wheelchair. She is alert appropriate. She knows what they month and year it is. She remembers the details of the accident tonight. She does not want to be here. She denies any head neck or back pain. She denies any paresthesias of her upper or lower extremities. No change in the functionality of her upper or lower extremities. No nausea no vomiting. No visual acuity changes. No diplopia. Again no head neck or back pain. - Related Data Allergies Allergy/AdvReac Type Severity Reaction Status Date / Time No Known Allergies Allergy Verified 08/15/20 15:02 Home Meds: Home Meds DULoxetine [Cymbalta] 60 mg PO BID 11/06/18 [History] Cholecalciferol (Vitamin D3) [Vitamin D3] 2,000 unit PO DAILY 07/23/20 [History] Pramipexole Di-HCl [Mirapex] 0.125 mg PO BEDTIME 07/23/20 [History] Valsartan/Hydrochlorothiazide [Diovan Hct 320-25 mg Tablet] 1 each PO DAILY 07/23/20 [History] buPROPion HCL [Wellbutrin Xl] 150 mg PO DAILY 07/23/20 [History] buPROPion HCL [Wellbutrin Xl] 300 mg PO DAILY 07/23/20 [History] busPIRone [Buspar] 15 mg PO BID 07/23/20 [History] carvediloL [Coreg] 3.125 mg PO BID 07/23/20 [History] hydrOXYzine HCL [Atarax] 25 mg PO Q4H PRN 07/23/20 [History] Past Medical History Cardiovascular History: Reports: Hypertension Musculoskeletal History: Reports: Back Pain, Chronic Psychiatric History: Reports: Depression Hematologic History: Reports: Anemia - Past Surgical History Musculoskeletal Surgical History: Reports: Other (See Below) Other Musculoskeletal Surgeries/Procedures:: back surgery Social & Family History - Family History Family Medical History: No Pertinent Family History - Caffeine Use Caffeine Use: Reports: None ED ROS GENERAL - Review of Systems Review Of Systems: Comprehensive ROS is negative, except as noted in HPI. ED EXAM, HEAD INJURY - Physical Exam Exam: See Below Text/Narrative:: This patient is alert appropriate and smells highly of alcoholic beverages but able to ambulate on her own with a little assistance. She is cooperative happy a nd interactive. Exam Limited By: Intoxication General Appearance: Alert, WD/WN, No Apparent Distress Head: Normocephalic, Scalp Swelling (Of the very posterior aspect of the scalp there is about a quarter size hematoma. Without any subcutaneous emphysema bony deformities or step-offs.). No: Scalp Lacerations, Scalp Abrasions, Scalp Ecchymosis, Scalp Tenderness, Active Bleeding, Lloyd's Sign, Facial Abrasions, Facial Ecchymosis, Facial Lacerations, Facial Swelling, Sinus Tenderness, Facial Tenderness, Raccoon Eyes Eyes: Bilateral Eye: EOMI, PERRL Ears: Normal External Exam, Normal Canal, Hearing Grossly Normal, Normal TMs Nose: Normal Inspection, Normal Mucousa, No Blood Throat/Mouth: Normal Inspection, Normal Lips, Normal Teeth, Normal Gums, Normal Oropharynx, Normal Voice, No Airway Compromise Neck: Non-Tender, Full Range of Motion, Normal Alignment, Normal Inspection Respiratory: No Respiratory Distress, Lungs Clear, Normal Breath Sounds, No Accessory Muscle Use, Chest Non-Tender Cardiovascular: Normal Peripheral Pulses, Regular Rate, Rhythm, No Edema GI/Abdominal Exam: Normal Bowel Sounds, Soft, Non-Tender, No Organomegaly, Pelvis Stable (Female) Exam: Deferred Rectal (Female) Exam: Deferred Back Exam: Normal Inspection, Full Range of Motion Extremities: Normal Inspection, Normal Range of Motion, Non-Tender, No Pedal Edema, Normal Capillary Refill Neurologic: bankman II-XII nml As Tested, No Motor/Sensory Deficits, Alert, Normal Mood/Affect, Oriented x 3 Skin: Normal Color, Warm/Dry - [place] Coma Score Best Eye Response ([place]): (4) Open Spontaneously Best Verbal Response ([place]): (5) Oriented Best Motor Response ([place]): (6) Obeys Commands Course - Vital Signs Last Recorded V/S: Last Vital Signs Temp 97.9 F 08/15/20 03:15 Pulse 84 08/15/20 04:28 Resp 20 08/15/20 04:28 BP 162/110 H 08/15/20 04:28 Pulse Ox 95 08/15/20 03:15 - Orders/Labs/Meds Labs: Laboratory Tests 08/15/20 08/15/20 Range/Units 03:44 03:44 WBC 6.3 (4.0-10.0) x10^3/uL RBC 4.32 (4.00-5.50) x10^6/uL Hgb 14.3 (12.0-16.0) g/dL Hct 41.0 (33.0-47.0) % MCV 94.9 H (78.0-93.0) fL MCH 33.1 H (26.0-32.0) pg MCHC 34.9 (32.0-36.0) g/dL RDW Coeff of Vidya 13.3 (10.0-15.0) % Plt Count 159 (130-400) x10^3/uL Neut % (Auto) 52.6 (50.0-80.0) % Lymph % (Auto) 33.8 (25.0-50.0) % [place] % (Auto) 10.4 (2.0-11.0) % Eos % (Auto) 2.9 (0.0-4.0) % Baso % (Auto) 0.3 (0.2-1.2) % Sodium 133 L (136-145) mmol/L Potassium 3.2 L (3.5-5.1) mmol/L Chloride 96 L (98-107) mmol/L Carbon Dioxide 28 (21-32) mmol/L Anion Gap 12.2 (5-15) mmol/L BUN 8 (7-18) mg/dL Creatinine 0.7 (0.55-1.02) mg/dL Est Cr Clr Drug Dosing TNP Estimated GFR (MDRD) > 60 Glucose 77 (74-106) mg/dL Calcium 7.4 L (8.5-10.1) mg/dL Ethyl Alcohol 415 H* (0-3) mg/dL - Radiology Interpretation Free Text/Narrative:: CT of the head initially per radiology shows no intercranial abnormality. Age- appropriate exam. Posterior left parietal scalp soft tissue swelling without acute calvarium fracture. - Re-Assessments/Exams Free Text/Narrative Re-Assessment/Exam: 08/15/20 Laboratory evaluation with a white blood cell count of 6.3, hemoglobin 14.3, pl atelets 159. CMP with a sodium of 133, potassium 3.2, chloride 96. Normal creatinine and BUN. Glucose is 77. Alcohol is an impressive 415. CT per radiology is negative. Although this patient has a rather impressively high alcohol. She is alert appropriately and she appears minimally intoxicated. She is asymptomatic at this time. Repeat neurological exam is no new findings. We will discharge her home with her at this time. Anything new or worse especially decreased level of consciousness or recurrent episodes of vomiting she is to recheck. At this time she is uninterested in any assistance with her chronic alcoholism. The next morning when the over read is completed by the second radiologist there is concerns for Asymmetric thickening, hyperdensity of the right cerebellar tentorium finding is nonspecific and possibly patient's normal anatomy however a small amount of extra-axial acute hemorrhage is possible. Follow-up CT in the next 12 to 24 hours. This was not identified on the initial CT and this was called and reported to me after it was reviewed in the morning. I did contact the patient by phone. She was currently at work and it is approximately 2 PM. She relates that she is completely asymptomatic without any head neck or back pain. No other neuro changes. I relayed the findings of the CT to her and recommended per radiology she has a repeat CT scan. She states that when she is done with work she will return to the emergency department for a repeat CT scan as directed by radiology. Departure - Departure Time of Disposition: 04:40 Disposition: Home, Self-Care 01 Clinical Impression: Closed head injury with brief loss of consciousness Acute alcoholic intoxication in alcoholism (blood level over 0.3) Qualifiers: Complication of substance-induced condition: uncomplicated Qualified Code(s): F10.220 - Alcohol dependence with intoxication, uncomplicated - Discharge Information Instructions: Alcohol Intoxication, [id number], Head Injury, Adult, [id number] Referrals: PCP,None [Ordering Only Provider] - Forms: ED Department Discharge Additional Instructions: Drink plenty of fluids tonight as well as tomorrow especially electrolyte containing fluids such as Gatorade and or Powerade. Home rest the next few days and keep the stimulation from lights sounds and stress at a minimum. Tylenol as needed for headache. Recheck if recurrent vomiting or changes in mental status. Return to the ED if new or worsening symptoms. Follow up with PCP in the next 4-6 days if any concerns sooner if worse or problems. Your alcohol level tonight is very seriously high and you are tolerating it quite well. If you are interested in your alcohol usage and help with this please see your PCP or [facility].
--- NOTE | 2020-08-15 09:21 | CT ---
[id number] CT/CT Head WO IV EXAM: CT Head WO IV CLINICAL DATA: INTOXICATION FALL LOC COMPARISON STUDY: None FINDINGS: No parenchymal hemorrhage. No hydrocephalus. No evidence of ischemia. Asymmetric thickening and hyperdensity of the right cerebellar tentorium. Finding is nonspecific but can be seen with a small amount of acute extra-axial hemorrhage. This could also represent patient's normal anatomy, as there is no prior for comparison or correlation. Small left posterior scalp contusion. No underlying calvarial fracture. Paranasal sinuses and mastoid air cells are clear. IMPRESSION: Small left posterior scalp contusion. No underlying calvarial fracture. Asymmetric thickening/hyperdensity of the right cerebellar tentorium. Finding is nonspecific and possibly patient's normal anatomy, however a small amount of acute extra-axial hemorrhage is possible. Follow-up CT examination with thin 12-24 hours is recommended. Finding was not mentioned on the preliminary report. Results relayed to Christofer White at time of dictation. Fox Morejon MD 08/15/20 0920 Thank you for allowing us to participate in the care of your patient.
== END 2020-08-15 05:01 | disposition home or self-care (01) ==
LOC: VM.ED 03:15
DX: S06.9X1A Unspecified intracranial injury with loss of consciousness of 30 minutes or less, initial encounter (principal); I10 Essential (primary) hypertension; F10.220 Alcohol dependence with intoxication, uncomplicated; Y90.8 Blood alcohol level of 240 mg/100 ml or more; Z79.899 Other long term (current) drug therapy; W22.8XXA Striking against or struck by other objects, initial encounter
CPT/HCPCS: 36415; 70450; 80048; 80307; 85025; 99284; 99285-25

== ENCOUNTER 2020-08-15 13:50 | Emergency (ER) | payer BC ==
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
--- NOTE | 2020-08-16 09:06 | CT ---
[id number] CT/CT Head WO IV EXAM: CT Head WO IV CLINICAL DATA: REPEAT CT FROM LAST NIGHT HEAD INJURY. COMPARISON STUDY: Today at 0312 hours. FINDINGS: Again seen is a slightly asymmetric hyperdense and thickened right cerebellar tentorium. This has improved since examination today at 0312 hours. Findings are consistent with a small amount of subarachnoid hemorrhage. Remainder of the examination has not significantly changed since the prior examination. IMPRESSION: Improved appearance of small extra-axial subarachnoid hemorrhage compared to the prior examination. Fox Morejon MD 08/16/20 0905 Thank you for allowing us to participate in the care of your patient.
== END 2020-08-15 14:31 | disposition home or self-care (01) ==
LOC: VM.ED 13:50
DX: S09.90XD Unspecified injury of head, subsequent encounter (principal); I10 Essential (primary) hypertension; Z79.899 Other long term (current) drug therapy; X58.XXXD Exposure to other specified factors, subsequent encounter
CPT/HCPCS: 70450; 99283-25; 99284